=== PATIENT | male | born 1980 | race Caucasian/White ===

== ENCOUNTER 2016-07-13 14:05 | Emergency (ER) | payer SELFPAY ==
[~2016-07-13] VITALS: Ht 182.9 cm; Wt 68.0 kg
[2016-07-13 15:29] LABS: BLOOD UREA NITROGEN 14 mg/dL (5-23); CARBON DIOXIDE 24 mmol/L (22-33); CHLORIDE 103 mmol/L (101-109); CREATININE 1.1 mg/dL (0.6-1.3); GLUCOSE,RANDOM 84 mg/dL (63-117); POTASSIUM 3.5 mmol/L (3.4-5.0); SODIUM 142 mmol/L (138-143)
[2016-07-13 15:32] LABS: BASO # 0.1 10_X3_uL (0.0-0.1); BASO % 0.6 % (0.2-1.2); EOS # 0.1 10_X3_uL (0.0-0.5); EOS % 1.2 % (0.8-7.0); GRAN % 67.6 % (34.0-67.9); HEMATOCRIT 43.8 % (40-51); LYMPH # 2.4 10_X3_uL (1.3-3.6); LYMPH % 22.7 % (21.8-53.1); MEAN CORPUSCULAR HEMOGLOBIN 29.8 pg (27.0-33.0); MEAN CORPUSCULAR HGB CONC 34.2 g/dL (32.0-36.0); MEAN CORPUSCULAR VOLUME 86.9 fL (79-92); MEAN PLATELET VOLUME 10.7 fl (7.5-11.5); MONO # 0.8 10_X3_uL (0.3-0.8); MONO % 7.9 % (5.3-12.2); PLATELET COUNT 204 x10_3/uL (163-337); RED BLOOD COUNT 5.04 x10_6/uL (4.6-6.1); WHITE BLOOD COUNT 10.4 x10_3/uL (4.2-9.1)
[2016-07-13 16:28] LABS: ALBUMIN 4.1 gm/dL (3.4-5.0); ALKALINE PHOSPHATASE 93 U/L (50-136); ALT/SGPT 21 U/L (7.53-40.17); AST/SGOT 21 U/L (6.66-35.34); BILIRUBIN,TOTAL 0.49 mg/dL (0.0-1.0); MAGNESIUM 2.2 mg/dL (1.8-2.4); TOTAL PROTEIN 6.9 gm/dL (6.4-8.2)
[2016-07-13 16:29] LABS: BILIRUBIN,DIRECT < 0.20 mg/dL (0.0-0.30)
== END 2016-07-13 17:00 | disposition home or self-care (01) ==
LOC: ER 14:05
PROVIDERS: Internal Medicine
DX: R56.1 Post traumatic seizures (principal); V49.9XXD Car occupant (driver) (passenger) injured in unspecified traffic accident, subsequent encounter
CPT/HCPCS: 36415; 70450; 80048; 80076; 83735; 85025; 93005; 99284; 99284-25